=== PATIENT | female | born 1975 | race Caucasian/White ===

== ENCOUNTER → 2018-06-28 | Outpatient (CLI) | payer OTHER ==
[~2018-06-28] MED LIST: OXYC-12
--- NOTE | 2018-06-28 18:07 | Diagnostic Imaging Report ---
PROCEDURE: CT chest without contrast. TECHNIQUE: Multiple contiguous axial images were obtained through the chest without the use of intravenous contrast. INDICATION: Lung nodule of the right lung, reportedly found approximately one month ago. COMPARISON: None. FINDINGS: No suggestion of pathologically enlarged mediastinal and/or hilar lymphadenopathy on noncontrast imaging. The heart is compressed by pectus excavatum deformity. Overall heart size within normal limits. Small anterior and apical pericardial effusion is present, maximum thickness at 9 mm. Apparent surgical changes at the level of the thyroid bed with clips at the thyroid. 6 mm pleural-based nodule posteriorly in the right lower lobe is present. Remaining lung stiles with emphysematous changes. No significant consolidating infiltrate. No pleural effusion. Several small nonobstructing left renal stones. Cholecystectomy changes. The visualized osseous structures demonstrate no acute findings. Small sclerotic foci of L4 vertebral body. There may be a small enchondroma of the left humeral head. IMPRESSION: 6 mm nodule right lower lobe with background emphysematous changes of the lung parenchyma. Fleischner Society guidelines in a low risk patient would suggest followup CT at 12 months. In a high-risk patient, initial followup CT at 6 months. Dictated by: Dictated on workstation # [id number]
== END ==
LOC: RAD FS 15:39
PROVIDERS: ATTEND Family Medicine
DX: R91.1 Solitary pulmonary nodule (principal)
CPT/HCPCS: 71250

== ENCOUNTER → 2019-01-19 | Outpatient (CLI) | payer OTHER ==
--- NOTE | 2019-01-19 18:27 | Diagnostic Imaging Report ---
PROCEDURE: CT chest without contrast. TECHNIQUE: Multiple contiguous axial images were obtained through the chest without the use of intravenous contrast. Auto Exposure Controls were utilized during the CT exam to meet ALARA standards for radiation dose reduction. DATE: January 19, 2019. COMPARISON: CT chest, June 28, 2018. INDICATION: 43-year-old female, pulmonary nodule followup. PROCEDURE: Axial noncontrasted CT images of the chest. Noncontrast limits the evaluation of the mediastinum and vascular structures. FINDINGS: There is a pleurally based right lower lobe pulmonary nodule on axial image 121 which measures 7 mm in size. This is unchanged since June 28, 2018. There are adjacent linear opacities compatible with atelectasis. There is minimal dependent atelectasis in the left lower lobe. There is no additional identified pulmonary nodule. There is no additional focal airspace consolidation. There is no pneumothorax. There is no pleural effusion. The central airways are patent. The heart is not enlarged. There is no sizable pericardial effusion. There is no identified abnormally enlarged mediastinal or axillary lymph node which meets CT size criteria for adenopathy. There is a 3 mm low-attenuation lesion in the left lobe of the liver on axial image 147, too small to characterize. This is retrospectively unchanged. The patient is status post cholecystectomy. There is a 2 mm nonobstructing left renal stone on axial image 145. There are additional nonobstructing left renal stones. There is a stone in the left proximal ureter near the ureteropelvic junction, measuring 2 mm in size, on axial image 165. There is no left hydronephrosis. There is no right hydronephrosis. There are atherosclerotic calcifications noted. Additional evaluation of the imaged portions of the upper abdomen is unremarkable. There is no identified acute bony abnormality. IMPRESSION: 1. Multiple nonobstructing left renal stones including a venous 2 mm stone in the left proximal ureter at the ureteropelvic junction without hydronephrosis. 2. Stable 7 mm pleural-based right lower lobe pulmonary nodule since June 2018. The nodule is new since CT abdomen abdomen and pelvis of March 19, 2009. Recommend follow-up CT chest in six months to evaluate for continued stability. Dictated by: Dictated on workstation # [id number]
== END ==
LOC: RAD FS 15:25
PROVIDERS: ATTEND Family Medicine
DX: N20.2 Calculus of kidney with calculus of ureter (principal); R91.1 Solitary pulmonary nodule
CPT/HCPCS: 71250

== ENCOUNTER → 2019-01-26 | Outpatient (CLI) | payer OTHER ==
--- NOTE | 2019-01-26 09:33 | Diagnostic Imaging Report ---
PROCEDURE: CT head without contrast. TECHNIQUE: Multiple contiguous axial images were obtained through the brain without the use of intravenous contrast. Auto Exposure Controls were utilized during the CT exam to meet ALARA standards for radiation dose reduction. INDICATION: Headache. COMPARISON: No prior studies are available for comparison. FINDINGS: The ventricles and sulci are within normal limits. No sulcal effacement or midline shift is identified. No acute intra-axial or extra-axial hemorrhage is detected. Cisterns are patent. Visualized paranasal sinuses are clear. IMPRESSION: No acute intracranial process is detected. Dictated by: Dictated on workstation # [id number]
== END ==
LOC: RAD FS 08:58
PROVIDERS: ATTEND Family Medicine
DX: R51 Headache (principal)
CPT/HCPCS: 70450

== ENCOUNTER → 2021-01-09 | Outpatient (CLI) | payer OTHER ==
--- NOTE | 2021-01-09 10:12 | Diagnostic Imaging Report ---
INDICATION: Chronic neck pain Cervical spine AP and lateral views of the cervical spine The odontoid is intact. Atlantoaxial relationships appear normal. Vertebral body height and alignment appear normal. Intervertebral disc spaces well-maintained. There is no prevertebral soft tissue swelling. IMPRESSION: Negative cervical spine. Dictated by: Dictated on workstation # [id number]
== END ==
LOC: RAD FS 09:50
PROVIDERS: ATTEND Family Medicine
DX: M54.2 Cervicalgia (principal)
CPT/HCPCS: 72040